=== PATIENT | female | born 1990 | race Caucasian/White ===

== ENCOUNTER 2024-09-16 08:38 | Emergency (ER) | payer MEDICAID, OTHER ==
[~2024-09-16] VITALS: Ht 157.5 cm; Wt 59.8 kg
[2024-09-16 08:57] VITALS: BP 112/78; PULSE 98; RESP 18; TEMP 98.3; O2SAT 97
--- NOTE | 2024-09-16 09:09 | ED.PDOC ---
SCALLOP DREDGER HPI Comments A 34 YEAR OLD FEMALE PRESENTS TO THE ED WITH COMPLAINT OF VAGINAL SPOTTING DURING . PATIENT STATES SHE WAS CURRENTLY ABOUT 13 WEEKS AND BEGAN TO EXPERIENCE VAGINAL SPOTTING TODAY, PROMPTING HER TO COME TO THE ED FOR EVALUATION. PATIENT NOTES HER LAST ULTRASOUND AND BLOOD TEST WAS ON 09/06/2024, ALL OF WHICH WAS NORMAL. PATIENT DENIES DYSURIA, HEMATURIA, VAGINAL DISCHARGE, FEVER, CHILLS, SHORTNESS OF BREATH, CHEST PAIN, ABDOMINAL PAIN, NAUSEA, VOMITING, HEADACHE, OR OTHER COMPLAINTS. NO OTHER SYMPTOMS OR MODIFYING FACTORS AT THIS TIME. PATIENT IS ALERT, ORIENTED X 4, AND HAS STEADY GAIT. Chief Complaint: Vaginal Bleed Time Seen by MD: 08:48 Reviewed Notes: Nurses Notes, Medications, Allergies Allergies: Coded Allergies: NO KNOWN ALLERGIES (Unverified , 09/16/24) Information Source: Patient Mode of Arrival: Ambulatory Timing: Hours Prehospital treatment: None Severity: Moderate Vaginal Discharge: None Vaginal Lesions: None Bleeding Quality: Bright Red Vaginal Mass: None Onset Of Mass/Bleeding: Spontaneous Sexual Activity: Last Consensual [place]: Unknown Control: None History of: Current Blood Type: Unknown Symptoms of Possible : None Associated Signs and Symptoms: Other (VAGINAL SPOTTING ) Past Medical History PAST MEDICAL HISTORY: Denies Surgical History: Denies all surgeries RUG SETTER AXMINSTER History: No Pertinent RUG SETTER AXMINSTER History Family History Family History: Reviewed,noncontributory to illness Social History Smoker: Non-Smoker Alcohol: Denies ETOH Use Drugs: Denies Drug Use Lives In: Home Constitutional: denies: chills, diaphoresis, fatigue, fever, malaise, sweats, weakness, others EENTM: denies: blurred vision, double vision, ear bleeding, ear discharge, ear drainage, ear pain, ear ringing, eye pain, eye redness, hearing loss, mouth pain, mouth swelling, nasal discharge, nose bleeding, nose congestion, nose pain, photophobia, tearing, throat pain, throat swelling, voice changes, others Respiratory: denies: cough, hemoptysis, orthopnea, SOB at rest, shortness of breath, SOB with excertion, stridor, wheezing, others Cardiovascular: denies: chest pain, dizzy spells, diaphoresis, Dyspnea on exertion, edema, irregular heart beat, left arm pain, lightheadedness, palpitati ons, PND, syncope, others Gastrointestinal: denies: abdomen distended, abdominal pain, blood streaked bowels, constipated, diarrhea, dysphagia, difficulty swallowing, hematemesis, melena, nausea, poor appetite, poor fluid intake, rectal bleeding, rectal pain, vomiting, others Genitourinary: reports: abnormal vagina bleeding, ; denies: burning, dyspareunia, dysuria, flank pain, frequency, hematuria, incontinence, pain, vagina discharge, urgency, others Neurological: denies: dizziness, fainting, headache, left sided numbness, left sided weakness, numbness, paresthesia, pre-existing deficit, right sided numbness, right sided weakness, seizure, speech problems, tingling, tremors, weakness, others Musculoskeletal: denies: back pain, gout, joint pain, joint swelling, muscle pain, muscle stiffness, neck pain, others Integumetry: denies: bruises, change in color, change in hair/nails, dryness, laceration, lesions, lumps, rash, wounds, others Allergic/Immunocompromised: denies: Difficulty Healing, Frequent Infections, Hives, Itching, others Hematologic/Lymphatic: denies: anemia, blood clots, easy bleeding, easy bruising, swollen glands, others Endocrine: denies: excessive hunger, excessive sweating, excessive thirst, excessive urination, flushing, intolerance to cold, intolerance to heat, unexplained weight gain, unexplained weight loss, others Psychiatric: denies: anxiety, bipolar disorder, depression, hopeless, panic disorder, schizophrenia, sleepless, suicidal, others All Other Systems: Reviewed and Negative Physical Exam General Appearance: No Apparent Distress, Normal HEENT: Normal ENT Inspection, PERRL/EOMI, Pharynx Normal, TMs Normal Neck: Full Range of Motion, Non-Tender, Normal, Normal Inspection Respiratory: Chest Non-Tender, Lungs Clear, No Accessory Muscle Use, No Respiratory Distress, Normal Breath Sounds Cardiovascular: No Edema, No JVD, No Murmur, No Gallop, Normal Peripheral Pulses, Regular Rate/Rhythm Breast Exam: Deferred Gastrointestinal: No Organomegaly, Non Tender, No Pulsatile Mass, Normal Bowel Sounds, Soft Genitalia: Deferred Pelvic: Normal External Exam, Other (VAGINAL SPOTTING, NO VAGINAL BLEEDING AND BLOOD CLOTS, NO TENDERNESS PELVIC. 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 Was a procedure done?: No Differential Diagnosis (RUG SETTER AXMINSTER) Vaginal Bleeding: - Complete, - Incomplete, - Threatened, Ectopic , UTI, Vaginitis Mass / Lesion: N/A Vaginal Discharge: N/A X-Ray, Labs, Meds, VS Vital Signs Date Time Temp Pulse Resp B/P (MAP) Pulse Ox O2 Delivery O2 Flow Rate FiO2 09/16/24 08:57 98.3 98 18 112/78 (89) 97 98.3 09/16/24 08:57 98 18 97 Room Air 09/16/24 08:46 98.3 98 18 112/78 (89) 97 98.3 Lab Test 09/16/24 10:30 09/16/24 10:23 Range/Units White Blood Count 6.2 4.4-10.8 10^3/uL Red Blood Count 4.26 4.0-5.20 10^6/uL Hemoglobin 11.5 L 12.2-16.2 g/dL Hematocrit 34.1 L 36.0-46.0 % Mean Corpuscular Volume 80.1 80.0-100.0 fL Mean Corpuscular Hemoglobin 27.0 L 28.0-32.0 pg Mean Corpuscular Hemoglobin Concent 33.7 32.0-36.0 g/dL Red Cell Distribution Width 13.9 11.8-14.3 % Platelet Count 211 140-450 10^3/uL Mean Platelet Volume 7.9 6.9-10.8 fL Neutrophils (%) (Auto) 62.3 37.0-80.0 % Lymphocytes (%) (Auto) 28.1 10.0-50.0 % Monocytes (%) (Auto) 7.2 0.0-12.0 % Eosinophils (%) (Auto) 2.2 0.0-7.0 % Basophils (%) (Auto) 0.2 0.0-2.0 % Neutrophils # (Auto) 3.8 1.6-8.6 10 ^3/uL Lymphocytes # (Auto) 1.7 0.4-5.4 10 ^3/uL Monocytes # (Auto) 0.4 0-1.3 10 ^3/uL Eosinophils # (Auto) 0.1 0-0.8 10 ^3/uL Basophils # (Auto) 0 0-0.2 10 ^3/uL Nucleated Red Blood Cells 0.1 % Sodium Level 138 136-145 mmol/L Potassium Level 3.5 3.5-5.1 mmol/L Chloride Level 107 98-107 mmol/L Carbon Dioxide Level 21 20-31 mmol/L Anion Gap 10 5-15 Blood Urea Nitrogen 5 L 9-23 mg/dL Creatinine 0.53 L 0.550-1.02 mg/dL Glomerular Filtration Rate Calc 124 >90 mL/min BUN/Creatinine Ratio 9.4 L 10.0-20.0 Serum Glucose 90 74-106 mg/dL Calcium Level 9.4 8.7-10.4 mg/dL Beta HCG, Quantitative 39585.9 H 1.5-4.2 mIU/mL Urine Color Colorless Yellow Urine Clarity Turbid H Clear Urine pH 6.5 5.0-9.0 Urine Specific [place] 1.012 1.001-1.035 Urine Protein Negative Negative Urine Ketones Negative Negative Urine Blood 3+ H Negative /uL Urine Nitrite Negative Negative Urine Bilirubin Negative Negative Urine Urobilinogen Normal Negative mg/dL Urine Leukocyte Esterase Trace Negative /uL Urine RBC 20 0 - 4 /hpf Urine Microscopic WBC 8 H 0-5 /HPF Urine Squamous Epithelial Cells Few <5 /hpf Urine Bacteria Few H None Seen /hpf Urine Glucose Normal Normal mg/dL OB ULTRASOUND <14 WEEKS: HISTORY: VAGINAL BLEEDING THIS MORNING, 13 WEEKS TECHNIQUE: Multiple real-time grayscale sonographic images of the pelvis with duplex Doppler color flow, spectral and M-mode analysis. TRANSDUCERS: Transabdominal FINDINGS: The uterus measures 15.2 x 14.1 x 6.8 cm. The placenta appears posterior visualized approximately 0.9 cm from the internal cervical os with vessel seen crossing the internal cervical os which may represent vasa previa. Bilateral ovaries are not well visualized bowel gas IUP single live fetus at 14 weeks 2 days average ultrasound age based on mean crown-rump length of 8.4 cm and gestational sac size of 7.6 cm heart rate detected at 145 beats per minute. IMPRESSION: IUP single live fetus 14 weeks 2 days AUA corresponding to an STEPHIE of 03/15/2025. The placenta appears posterior visualized approximately 0.9 cm from the internal cervical os with vessel seen crossing the internal cervical os which may represent vasa previa. Recommend OB consultation. ATED BY: MARGRET GREGG MD DICTATED DATE/TIME: 09/16/24 1015 SIGNED BY: MARGRET GREGG MD SIGNED DATE/TIME: 09/16/24 1015 CC: X-Ray, Labs, Meds, VS Comment EXTERNAL MEDICAL RECORDS REVIEWED: [NONE] INDEPENDENT HISTORIANS: [NONE] SOCIAL DETERMINANTS OF HEALTH: [NONE] LABS ORDERED: CBC, BMP, UA, BETA HCG QUANT REVIEWED AND INTERPRETED RESULTS: BLOOD 3+ IMAGING ORDERED: US OB < 14 WKS TREATMENTS ORDERED: NONE PROCEDURES PERFORMED: NONE CRITICAL CARE TIME: NONE I HAVE DISCUSSED THE PATIENT WITH THE ATTENDING PHYSICIAN DR. TRINH AND HE AGREES WITH THE PATIENT'S PLAN OF CARE AND DISPOSITION. I HAVE INFORMED THE PATIENT OF HER ULTRASOUND RESULTS HAVE INSTRUCTED HER TO FOLLOW UP WITH [facility]/HER SCALLOP DREDGER SOON POSSIBLE AND SHE FULLY UNDERSTOOD AND STATED SHE WAS GOING TO FOLLOW UP WITH HER EQUINE MANAGER AT [facility] TODAY AFTER SHE LEAVES THIS ED. BASED ON HISTORY OF PRESENT ILLNESS, AND PHYSICAL EXAM, PATIENT WILL BE DISCHARGED HOME. SHARED DECISION MAKING: PATIENT INSTRUCTED TO FOLLOW UP WITH PRIMARY CARE PROVIDER IN 1-2 DAYS FOR RE-EVALUATION OF SYMPTOMS. PATIENT VERBALIZES UNDERSTANDING TO RETURN TO ED FOR NEW OR WORSENING SYMPTOMS OR IF FOLLOW UP WITH PCP CANNOT BE OBTAINED. PATIENT FEELS COMFORTABLE GOING HOME AT THIS TIME. ALL QUESTIONS ADDRESSED AT TIME OF DISCHARGE. Images Reviewed?: Images reviewed and evaluated by me Time of 1ST Reevaluation: 11:16 Reevaluation 1ST: Unchanged Consultation: suction plate carrier cleaner (1100: I HAVE CONSULTED THE ON-CALL SCALLOP DREDGER DR. MARQUIS REGARDING THIS PATIENT'S CASE AND ULTRASOUND RESULTS AND SHE HAS SAID THE PATIE NT DOES NOT NEED TO BE TRANSFERRED, BUT NEEDS TO FOLLOW UP WITH [facility] IMMEDIATELY FOR FURTHER EVALUATION OF HER .) Patient Education/Counseling: Diagnosis, Treatment, Need For Follow Up Family Education/Counseling: Diagnosis, Treatment, Need For Follow Up Medical Screening: No EMC Exist At This Time Departure 1 Departure Time of Disposition: 11:20 Impression: Primary Impression: Vaginal spotting Additional Impressions: Threatened in second trimester Vasa previa Qualified Codes: O69.4XX0 - Labor and delivery complicated by vasa previa, not applicable or unspecified Disposition: HOME / SELF CARE / HOMELESS Condition: Stable Additional Instructions: FOLLOW-UP WITH PCP AND SCALLOP DREDGER CAITY. RETURN TO ED FOR ANY NEW OR WORSENING SYMPTOMS. Discharged With: Self, Relative Critical Care Note Critical Care Time?: No Stability Stability form required: No I personally scribed for MAGALY WATT ([email or web address]) on 09/16/24 at 09:09. Electronically submitted by Rafael Reilly ([email or web address]). I personally scribed for MAGALY WATT ([email or web address]) on 09/16/24 at 10:32. Electronically submitted by Rafael Reilly ([email or web address]). I personally scribed for MAGALY WATT ([email or web address]) on 09/16/24 at 11:05. Electronically submitted by Rafael Reilly ([email or web address]). I personally scribed for MAGALY WATT ([email or web address]) on 09/16/24 at 11:14. Electronically submitted by Rafael Reilly ([email or web address]). MAGALY WATT September 16, 2024 09:09
--- NOTE | 2024-09-16 10:17 | DVH ---
OB ULTRASOUND <14 WEEKS: HISTORY: VAGINAL BLEEDING THIS MORNING, 13 WEEKS TECHNIQUE: Multiple real-time grayscale sonographic images of the pelvis with duplex Doppler color f low, spectral and M-mode analysis. TRANSDUCERS: Transabdominal FINDINGS: The uterus measures 15.2 x 14.1 x 6.8 cm. The placenta appears posterior visualized approximately 0.9 cm from the internal cervical os with ves lake seen crossing the internal cervical os which may represent vasa previa. Bilateral ovaries are not well visualized bowel gas IUP single live fetus at 14 weeks 2 days average ultrasound age based on mean crown-rump length of 8. 4 cm and gestational sac size of 7.6 cm heart rate detected at 145 beats per minute. IMPRESSION: IUP single live fetus 14 weeks 2 days AUA corresponding to an STEPHIE of 03/15/2025. The placenta appears posterior visualized approximately 0.9 cm from the internal cervical os with ves lake seen crossing the internal cervical os which may represent vasa previa. Recommend OB consultation .
[2024-09-16 10:39] LABS: Basophils # (auto) 0 10 ^3/uL (0-0.2); Basophils % (auto) 0.2 % (0.0-2.0); Eosinophils # (auto) 0.1 10 ^3/uL (0-0.8); Eosinophils % (auto) 2.2 % (0.0-7.0); Hematocrit 34.1 % (36.0-46.0); Hemoglobin 11.5 g/dL (12.2-16.2); Lymphocytes # (auto) 1.7 10 ^3/uL (0.4-5.4); Lymphocytes % (auto) 28.1 % (10.0-50.0); Mean Corpuscular Hgb Conc. 33.7 g/dL (32.0-36.0); Mean Corpuscular Volume 80.1 fL (80.0-100.0); Monocytes # (auto) 0.4 10 ^3/uL (0-1.3); Monocytes % (auto) 7.2 % (0.0-12.0); Neutrophils # (auto) 3.8 10 ^3/uL (1.6-8.6); Neutrophils % (auto) 62.3 % (37.0-80.0); Nucleated Red Blood Cells % 0.1 %; Platelet Count (auto) 211 10^3/uL (140-450); Red Blood Cells 4.26 10^6/uL (4.0-5.20); Red Cell Distribution Width 13.9 % (11.8-14.3); White Blood Cell 6.2 10^3/uL (4.4-10.8)
[2024-09-16 10:48] LABS: Potassium 3.5 mmol/L (3.5-5.1); Sodium 138 mmol/L (136-145)
[2024-09-16 10:49] LABS: Anion Gap 10 (5-15); Carbon Dioxide 21 mmol/L (20-31)
[2024-09-16 10:49] LABS: Urine Bacteria FEW /hpf (None Seen); Urine Blood 3+ /uL (Negative); Urine Clarity Turbid (Clear); Urine Color Colorless (Yellow); Urine Protein, UAD Negative (Negative); Urine Specific Gravity 1.012 (1.001-1.035); Urine Squamous Epithelial Cell FEW /hpf (<5); Urine Urobilinogen Normal (Negative); Urine WBC 8 /HPF (0-5); Urine pH 6.5 (5.0-9.0)
[2024-09-16 10:50] LABS: Calcium 9.4 mg/dL (8.7-10.4); Chloride 107 mmol/L (98-107)
[2024-09-16 10:54] LABS: Glucose 90 mg/dL (74-106)
[2024-09-16 10:55] LABS: BUN/Creatinine Ratio 9.4 (10.0-20.0)
[2024-09-16 10:57] LABS: Blood Urea Nitrogen 5 mg/dL (9-23)
== END 2024-09-16 11:15 | disposition home or self-care (01) ==
LOC: ER 08:38
DX: O20.0 Threatened abortion (principal); O69.4XX0 Labor and delivery complicated by vasa previa, not applicable or unspecified; Z3A.13 13 weeks gestation of pregnancy
CPT/HCPCS: 36415; 76801; 80048; 81001; 84702; 85025

== ENCOUNTER 2025-01-18 17:20 | Observation (INO) | payer MEDICAID ==
--- NOTE | 2025-01-18 18:17 | DVH ---
EXAM: US OB ULTRASOUND COMP GTR 14 WKS CLINICAL HISTORY: Fall COMPARISON: None TECHNIQUE: Grayscale, color-flow Doppler, and spectral Doppler ultrasound of the pelvis is performed by transabdominal technique. Findings: Single live intrauterine in vertex presentation with heart rate of 138 bpm. Cervical os appears closed. Placenta is posterior in location without evidence of previa or abruption. Limited evaluation of anatomy. Estimated gestational age 31 weeks 4 days based on parameters which include biparietal diameter 8.0 cm, head circumference 28.7 cm, abdominal circumference 26.1 cm, and femur length 6.[address] ratios within normal limits. Estimated weight 1724 g (3 lb 13 oz ). Nuchal cord. Impression: 1. Single live intrauterine in vertex presentation with heart rate of 138 bpm. 2. Estimated gestational age 31 weeks 4 days with estimated date of confinement 03/18/2025.
[2025-01-18] MEDS ORDERED: PREN1TAB71 PO (18:53)
--- NOTE | 2025-01-18 19:09 | DVHDS2 ---
Physician Discharge Progress N Final Diagnosis: wellbeing established S/P fall Operations or Procedures: Operations or Procedures S: 34yo IUP at 31.2wks presents to OB triage s/p fall since 1430 today. pt denies any VB/LOF, pt states that fetus has not moved well since the fall and was worried before coming to the nearest ER. Pt denies any medical hx, denies any DODD, vision changes or epigastric pain. Pt denies abdominal pain but feels pressure in lower abdominal region. PNC with [facility], uncomplicated. 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 STEPHIE of 03/20/25 gotten from [facility] of 06/13/2024, last pap smear was 2022, normal. O: - VSS - NST reactive - TOCO: no UCs - No VB noted - Abdomen palpated soft - Bruising on left wrist, right knee and central abdomen A: - 34yo IUP @ 31.2 wk - S/p Fall - Wellbeing established P: - Recommended support belt - Recommended Arnica gel for bruises - Rest recommended - kick counts encouraged - Advised to go to the nearest ER for signs of PTL, VB or leaking, decreased movement -Dr. Ayala consulted, agrees with POC to D/C home Condition on Discharge: Stable Disposition: Home Discharge Instructions: Diet: Regular Activity: Light activity Medications: see med list Follow Up Care: Specialist: f/u with [facility] on 01/19/25 Discharge Statement: "Patient was advised to return to the ER or call 911 if any headaches, dizziness, shortness of breath, chest pain, abdominal pain, bleeding, fevers, or worsening of medical condition. Patient was counseled about treatment plan, medications, possible side effects, patientverbalized understanding. All questions were answered to the best of my ability. This discharge took greater then 30 minutes in planning, reviewing documentation, counseling the patient, and discussing with other team members." Visit Coding OBGYN Date of Service: Jan 18, 2025 Billing Provider: JENNIFER JENKINS CNM COMPRESSOR STATION CHIEF ENGINEER Common Visit Codes: 89307-[id number] OBS CARE (HIGH) COMPRESSOR STATION CHIEF ENGINEER Procedure Codes: 27278-64- NON-STRESS TEST HENRIK DAVID Jan 18, 2025 19:09
== END 2025-01-18 19:08 | disposition home or self-care (01) ==
LOC: LDRP 17:20
PROVIDERS: ADMIT Obstetrics & Gynecology; ATTEND Obstetrics & Gynecology
DX: O09.523 Supervision of elderly multigravida, third trimester (principal); Z3A.31 31 weeks gestation of pregnancy; Z98.890 Other specified postprocedural states
CPT/HCPCS: 59025; 76805; 94760; G0378